=== PATIENT | male | born 1995 | race Caucasian/White ===

== ENCOUNTER 2017-09-06 12:45 | Emergency (ER) | payer MEDICAID ==
[~2017-09-06] VITALS: Ht 190.5 cm; Wt 113.4 kg
[~2017-09-06 12:45] MED LIST: ACYCLOVIR400 MG PO; FLEXERIL10 MG PO; KEFLEX 250MG.250 MG PO; KEFLEX 500MG.500 MG PO; MEDROL 4MG. DOSE4 MG PO; NAPROXEN SODIU220 MG PO; PHENERGAN 12.12.5 M1 PO; PHENERGAN 25MG.25 M1 PO; TYLENOL W/CODEI1 TA4 PO; VIT B-6100 MG PO
--- NOTE | 2017-09-06 13:32 | RADIOLOGY REPORT PS360 ---
HAND-RT 3 VIEWS COMPARISON: None HISTORY: Right hand pain after recent injury TECHNIQUE: AP lateral and oblique views FINDINGS: The carpal bones metacarpals and phalanges appear intact with no evidence of recent or old fracture. There is mild diffuse soft tissue swelling of the hand with no foreign bodies. IMPRESSION: Mild soft tissue swelling, no fracture seen
[2017-09-06 13:41] VITALS: BP 166/86
--- NOTE | 2017-09-06 13:41 | Urgent Treatment Center Report ---
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 Location if Accident: Onset of symptoms date/time:/ or onset unknown for:MEDICAL HX UNKNOWN Have you (or family members/close friends) recently traveled outside the [place]? N If Yes, where/when: Have you had exposure to infectious disease within the past month? TB? Other? Specify: Patient state that he was doing his martial arts when he accidently hurt his right middle finger and hand States that he noticed that it was swollen State that he gave it a coulple of days and it did not improve so he came in to get it checked ALLERGIES Coded Allergies: No Known Allergies (09/06/17) History Medical History General Angina: No AL: No Hypertension? No Hyperlipidemia? No CHF? No COPD? No Asthma? No CVA? No Seizures? No Diabetes? No GB Disease: No MRSA? No TB? No Cancer? No Immunization HX DT/Tetanus 5-10 YRS Surgical Hx Previous Surgery?Y EYE YUNIOR. Social History Smoking Hx Smoker: Never Smoker Tobacco: No Alcohol Alcohol: No Review of Systems All Other Systems Reviewed and Negative Physical Exam Vital Signs Vital Signs Date Time Temp Pulse Resp B/P Pulse O2 O2 Flow FiO2 Ox Delivery Rate 09/06 1300 97.1 62 20 166/86 98 General Appearance normal appearance, WD/WN, no apparent distress Respiratory Status Yes: trachea midline, chest symmetrical, non tender chest. No: respiratory distress. Cardiovascular normal exam, regular rate/rhythm, no peripheral edema Extremities swelling, Pain swelling and bruising noted to right hand and middle finger, good cap refill, good pulses Neurologic alert, normal exam, oriented x 3 Medical Decision Making LABS/Meds/Orders Pt receiving controlled substance in ED? No Departure Departure Time of Disposition 1339 Disposition DC Home or Self Care(routine) Clinical Impression Primary Impression: Hand sprain Qualifiers: Encounter type: initial encounter Laterality: right Qualified Code: S63.91XA - Sprain of unspecified part of right wrist and hand, initial encounter Condition STABLE Referrals GOVIND FAUST, DILLON CANTU if pain and swelling persists Patient Instructions How To Perform RICE (Rest, Ice, Compress, Elevate) Additional Instructions Over the counter Motrin or Tylenol as needed for pain use acewrap until swelling gone REturn if needed Discharge Counseling Counseled pt/family regarding diagnosis, home care, follow up needs at [phone]
--- OUTSIDE RECORDS SUMMARY | 2017-09-09 11:55 | External Medical Summary Rpt | CCD ---
Author Author , TUAN Organization TUAN Address Unknown Phone [email or web address] Care Team Providers Care Unified Communications Architect Name Role Phone KENDELL POPEYE, KENDELL Unavailable Unavailable [facility] Unavailable Unavailable INC, [facility] Un[facility] Unavailable [facility], [facility] PAOLA DWI, PAOLA DWI Unavailable Unavailable PAOLA LORI, PAOLA Unavailable Unavailable LORI PAOLA, LORI E, Unavailable Unavailable PAOLA, LORI E [facility] Unavailable Unavailable SERVICES, [facility] SOKAN BAB, SOKAN BAB Unavailable Unavailable [facility] # Unavailable Unavailable [id number], [facility] # [id number] [facility] Unavailable Unavailable DEPT [facility], [facility] DE[facility] Unavailable Unavailable [facility] WEHRMAN III ALISHA, Unavailable Unavailable WEHRMAN III ALISHA Purpose Continuity of Care Document - 08-04-2008 through 2016 Problems Code Diagnosis DOS Provider Status Z202 CONTACT 09-21-2016 [facility] WITH [facility] EXPOSURE [facility] DEPT INFECT SANTOS SEXUAL MODE TRANSMS 25427 OTHER SPEC 12-31-2010 [facility] WITHOUT INC MENTION HEMORRHAGE 48627 UNS 12-31-2010 [facility] GASTRITIS&G LORI ASTRODUODIT IS W/O MENTION HEMORR 91597 ABDOMINAL 12-30-2010 [facility], MEDICAL UNSPECIFIED IMAGING ASS SITE 71836 ABDOMINAL 12-30-2010 [facility] RIGHT [facility] UPPER INC QUADRANT 77609 ABDOMINAL 12-29-2010 [facility] PAIN, EMERGENCY GENERALIZED SERVICES 5589 OTH&UNSPEC 09-22-2010 [facility] NONINFECTIO EMERGENCY US SERVICES GASTROENTER ITIS&COLITI S 87064 PAIN IN 08-14-2010 [facility] IM[facility]ING ASS FOOT 47315 UNSPECIFIED 08-14-2010 [facility] SITE OF EMERGENCY ANKLE SERVICES SPRAIN AND STRAIN E9270 OVEREXERTIO 08-14-2010 [facility] N FROM EMERGENCY SUDDEN SERVICES STRENUOUS MOVEMENT 4660 ACUTE 04-10-2010 [facility] INC 4659 ACUTE URIS 04-07-2010 [facility] OF [facility] UNSPECIFIED INC SITE 7862 COUGH 04-07-2010 [facility] Medications Na ND Rx Da Fi Fi Am Da Di Ph RX Ph St me C No te ll ll ou ys ag ar # ys at rm s nt no ma ic us Or Da si cy ia de te s n re d ME 50 08 09 4. 1 00 WA Ac TR 11 -2 -2 00 00 L- ti ON 10 2- 2- 0 07 MA ve ID 33 20 20 48 RT AZ 40 17 17 90 OL 2 82 PH E AR 50 MA 0 CY MG #2 TA 06 BL 0 ET OR 68 02 02 0 25 6 WA 71 LE Ac OM 38 -0 -0 .0 L- 05 WI ti ET 20 4- 4- 00 MA 47 S ve SCALES 04 20 20 RT 5 JR ZI 10 11 11 NE 1 PH DW AR IG 25 MA HT CY E MG # TA 10 BL 05 ET 91 Results Labs Lab Lab Date Result Refere Interp Status Commen Order Detail nces retati t Range on Treponema pallidum IgG Ab [Presence] in Serum by Immunoassay (07-18-2017 09:30) Trepone NON-SEB complet ma 017 CTIVE ed pallidu 09:30 m IgG Ab [Presen ce] in Serum by Immunoa ssay CHLAMYDIA AND GONORRHEA TESTING (07-18-2017 09:30) Chlamyd NEGATIV complet ia 017 E ed trachom 09:30 atis rRNA [Presen ce] in Unspeci fied specime n by Probe & target amplifi cation method Neisser NEGATIV complet ia 017 E ed gonorrh 09:30 oeae rRNA [Presen ce] in Unspeci fied specime n by Probe & target amplifi cation method Treponema pallidum IgG Ab [Presence] in Serum by Immunoassay (07-18-2017 09:30) COLLECT AH complet OR 017 ed 09:30 ETHNICI WHITE/N complet TY 017 ON-HISP ed 09:30 PURPOSE DIAGNOS complet OF 017 TIC ed EXAM 09:30 SPECIME BLOOD complet N 017 ed SOURCE 09:30 CHART 08-22-2 NA complet NUMBER 017 ed 09:30 Trepone Pending complet ma 017 ed pallidu 09:30 m IgG Ab [Presen ce] in Serum by Immunoa ssay CHLAMYDIA AND GONORRHEA TESTING (07-18-2017 09:30) COLLECT AH complet OR 017 ed 09:30 ETHNICI WHITE, complet TY 017 NON-HIS ed 09:30 PANIC KIT 10-2 complet EXPIRAT 017 017 ed ION 09:30 DATE SYMPTOM NO complet S 017 ed 09:30 REASON VOLUNTE complet FOR 017 ER/MEDI ed REQUEST 09:30 LARISSA PROBLEM SPECIME MALE complet N 017 URETHRA ed SOURCE 09:30 L PREGNAN NO complet T 017 ed 09:30 CHART N/A complet NUMBER 017 ed 09:30 Chlamyd Pending complet ia 017 ed trachom 09:30 atis rRNA [Presen ce] in Unspeci fied specime n by Probe & target amplifi cation method Neisser Pending complet ia 017 ed gonorrh 09:30 oeae rRNA [Presen ce] in Unspeci fied specime n by Probe & target amplifi cation method CHLAMYDIA AND GONORRHEA TESTING (09-21-2016 14:00) Chlamyd NEGATIV complet ia 016 E ed trachom 14:00 atis rRNA [Presen ce] in Unspeci fied specime n by Probe & target amplifi cation method Neisser NEGATIV complet ia 016 E ed gonorrh 14:00 oeae rRNA [Presen ce] in Unspeci fied specime n by Probe & target amplifi cation method Treponema pallidum IgG Ab [Presence] in Serum by Immunoassay (09-21-2016 14:00) Trepone NON-SEB complet ma 016 CTIVE ed pallidu 14:00 m IgG Ab [Presen ce] in Serum by Immunoa ssay CHLAMYDIA AND GONORRHEA TESTING (09-21-2016 14:00) COLLECT AH/GENP complet OR 016 ROBE ed 14:00 ETHNICI 09-21-2 WHITE, complet TY 016 NON-HIS ed 14:00 PANIC KIT complet EXPIRAT 016 016 ed ION 14:00 DATE SYMPTOM NO complet S 016 ed 14:00 REASON VOLUNTE complet FOR 016 ER/MEDI ed REQUEST 14:00 LARISSA PROBLEM SPECIME URINE complet N 016 ed SOURCE 14:00 PREGNAN NO complet T 016 ed 14:00 CHART N/A complet NUMBER 016 ed 14:00 Chlamyd Pending complet ia 016 ed trachom 14:00 atis rRNA [Presen ce] in Unspeci fied specime n by Probe & target amplifi cation method Neisser Pending complet ia 016 ed gonorrh 14:00 oeae rRNA [Presen ce] in Unspeci fied specime n by Probe & target amplifi cation method Treponema pallidum IgG Ab [Presence] in Serum by Immunoassay (09-21-2016 14:00) COLLECT AH/RTT complet OR 016 ed 14:00 ETHNICI WHITE/N complet TY 016 ON-HISP ed 14:00 ANIC PURPOSE DIAGNOS complet OF 016 TIC ed EXAM 14:00 SPECIME BLOOD complet N 016 ed SOURCE 14:00 CHART N/A complet NUMBER 016 ed 14:00 Trepone Pending complet ma 016 ed pallidu 14:00 m IgG Ab [Presen ce] in Serum by Immunoa ssay Procedures Procedure DOS Code Location Performer Comment IADNA 16677 [facility] DEPT TH DEPT TRACHOMAT SANTOS SANTOS IS AMPLIFIED PROBE TQ SYPHILIS 58216 [facility] TEST [facility] NON-TREPO [facility] DEPT [facility] DEPT NEMAL SANTOS SANTOS ANTIBODY QUAL IADNA 13231 [facility] NEISSERIA [facility] DEPT TH DEPT GONORRHOE SANTOS SANTOS AE AMPLIFIED PROBE TQ ANTIBODY 43983 [facility] HELICOBAC [address] [place] [address] [facility] ABDOMINAL 1 [facility] REAL INC [place] TIME W/[place] [address] [facility] LIPASE 1 [facility] H[facility]P [facility] INC INC BLOOD 96103 [facility] SANTAMARIA COUNT 1 [facility] COMPLETE INC INC AUTO&[place] [address] [facility]ANT[facility] AMYLASE 1 MEM HOSP [facility] INC INC COMPREHEN 99649 [facility] S[facility] SIVE 1 [facility] METABOLIC INC INC PANEL RADEX 86560 [facility] ANKLE 0 [facility] COMPLETE INC INC MINIMUM 3 VIEWS RADIOLOGI 29118 [facility] SANTAMARIA C EXAM 0 [facility] HOSP CHEST 2 INC INC VIEWS FRONTAL&L ATERAL Encounters Encounter Start End Date Code Location Performer Type Date OFFICE 75465 [facility] 6 [facility] T [facility] 10 HLTH DEPT HLTH [facility]PT MINUT[facility] ROSALIO - 1 1 [facility] OFF[facility] [address] [facility] 1 1 LORI T VISIT 15 MINUTES HOSPITAL [facility] - 1 1 [facility] 27275 [facility] 1 1 [facility] T VISIT MODERATE SEVERITY EMERGENCY 91249 JH RDZ DEPT 1 1 EMERGENCY [facility] VISIT SERVICES HIGH SEVERITY& THREAT [facility] ROSALIO - 1 1 [facility] - 0 0 [facility] T EMERGENCY 49890 [facility] 0 0 [facility] T VISIT LIMITED/M INOR PROB EMERGENCY 12847 JH GIBSON 0 0 EMERGENCY DEPARTMEN SERVICES T VISIT HIGH/URGE NT SEVERITY EMERGENCY 16639 JH SCHWARTZ 0 0 EMERGENCY III ALISHA DEPARTMEN SERVICES T VISIT MODERATE SEVERITY HOSPITAL [facility] - 0 0 [facility]PATIEN [facility] T HOSPITAL ROSALIO - 0 0 MEM H[facility] OUTPATIEN INC T EMERGENCY 92967 [facility] 0 0 [facility] DEPARTMEN INC T VISIT LOW/MODER SEVERITY EMERGENCY 92831 [facility] 0 0 [facility] DEPARTMEN INC T VISIT LOW/MODER SEVERITY HOSPITAL [facility] - 0 0 [facility] T OFFICE 51901 TIANA RODRIGUEZ 8 8 LORIJerrell SANDOVAL E T VISIT EMD 15 MINUTES
--- OUTSIDE RECORDS SUMMARY | 2017-09-09 11:55 | External Medical Summary Rpt | CCD ---
Author Author , TUAN Organization TUAN Address Unknown Phone .[facility] Care Team Providers Care Unemployment Inspector Name Role Phone KENDELL POPEYE, KENDELL Unavailable Unavailable [facility] Unavailable Unavailable INC, [facility] Unavailable Unavailable IM[facility]ING [facility], [facility] PAOLA DWI, PAOLA DWI Unavailable Unavailable PAOLA LORI, PAOLA Unavailable Unavailable LORI PAOLA, LORI E, Unavailable Unavailable PAOLA, LORI E [facility] Unavailable Unavailable SERVICES, [facility] SOKAN BAB, SOKAN BAB Unavailable Unavailable [facility] # Unavailable Unavailable [id number], [facility] # [id number] [facility] Unavailable Unavailable DEPT SANTOS, [facility] DEPT SANTOS [facility] Unavailable Unavailable DEPT [facility] WEHRMAN III ALISHA, Unavailable Unavailable WEHRMAN III ALISHA Purpose Continuity of Care Document - 08-04-2008 through 2016 Problems Code Diagnosis DOS Provider Status Z202 CONTACT 09-21-2016 [facility] EXPOSURE [facility] DEPT INFECT SANTOS SEXUAL MODE TRANSMS 44372 OTHER SPEC 12-31-2010 [facility] WITHOUT INC MENTION HEMORRHAGE 68712 UNS 12-31-2010 PA[facility] GASTRITIS&G LORI ASTRODUODIT IS W/O MENTION HEMORR 91925 ABDOMINAL 12-30-2010 [facility], MEDICAL UNSPECIFIED IMAGING ASS SITE 76354 ABDOMINAL 12-30-2010 [facility] PA[facility] RIGHT [facility] UPPER INC QUADRANT 80978 ABDOMINAL 12-29-2010 [facility] PAIN, EMERGENCY GENERALIZED SERVICES 5589 OTH&UNSPEC 09-22-2010 [facility] NONINFECTIO EMERGENCY US SERVICES GASTROENTER ITIS&COLITI S 53094 PAIN IN 08-14-2010 [facility] ANKLE AND IMAGING ASS FOOT 94679 UNSPECIFIED 08-14-2010 [facility] SITE OF EMERGENCY ANKLE SERVICES SPRAIN AND STRAIN E9270 OVEREXERTIO 08-14-2010 JH N FROM EMERGENCY SUDDEN SERVICES STRENUOUS MOVEMENT 4660 ACUTE 04-10-2010 [facility] INC 4659 ACUTE URIS 04-07-2010 [facility] OF [facility] UNSPECIFIED INC SITE 7862 COUGH 04-07-2010 [facility] Medications Na ND Rx [...] MG #2 TA 06 BL 0 ET HI 68 02 02 0 25 6 WA [...] Procedure DOS Code Location Performer Comment IADNA 94365 [facility] DEPT TH DEPT TRACHOMAT SANTOS SANTOS IS AMPLIFIED PROBE TQ SYPHILIS 32365 [facility] NON-TREPO [facility] DEPT [facility] DEPT NEMAL SANTOS SANTOS ANTIBODY QUAL IADNA 13368 [facility] DEPT TH DEPT GONORRHOE SANTOS SANTOS AE AMPLIFIED PROBE TQ ANTIBODY 00578 [facility] SANTAMARIA HELICOBAC [address] [place] [address] [facility] S[facility]AM[facility] ABDOMINAL 1 [facility] REAL INC INC TIME W/[place] [address] [facility] SANTAM[facility]IA LIPASE 1 [facility] H[facility] INC INC BLOOD 31403 [facility] SANTAMARIA COUNT 1 [facility] COMPLETE INC INC AUTO&[place] [address] [facility] SANTAMARIA AMYLASE 1 [facility] H[facility] INC INC COMPREHEN 44643 [facility] SANT[facility] SIVE 1 [facility] METABOLIC INC INC PANEL RADEX 12001 [facility] SANTAMARIA ANKLE 0 [facility] COMPLETE INC INC MINIMUM 3 VIEWS RADIOLOGI 55218 [facility] SANTAMARIA C EXAM 0 [facility] HOSP CHEST 2 INC INC VIEWS FRONTAL&L ATERAL Encounters Encounter Start End Date Code Location Performer Type Date OFFICE 02499 [facility] T [facility] 10 HLTH DEPT HLTH DEPT MINUT[facility] ROSALIO - 1 1 [facility] OFF[facility] 69996 [facility] 1 1 LORI T VISIT 15 MINUTES HOSPITAL [facility] - 1 1 [facility] 60612 [facility] 1 1 [facility] T VISIT MODERATE SEVERITY EMERGENCY 46228 JH RDZ DEPT 1 1 EMERGENCY [facility] VISIT SERVICES HIGH SEVERITY& THREAT [facility] ROSALIO - 1 1 [facility] - 0 0 [facility] T EMERGENCY 10418 [facility] 0 0 [facility] T VISIT LIMITED/M INOR PROB EMERGENCY 69445 JH GIBSON 0 0 EMERGENCY DEPARTMEN SERVICES T VISIT HIGH/URGE NT SEVERITY EMERGENCY 19565 JH SCHWARTZ 0 0 EMERGENCY III ALISHA DEPARTMEN SERVICES T VISIT MODERATE SEVERITY HOSPITAL [facility] - 0 0 [facility] OUTPATIEN [facility] T HOSPITAL ROSALIO - 0 0 MEM [facility] OUTPATIEN INC T EMERGENCY 23329 [facility] 0 0 [facility] DEPARTMEN INC T VISIT LOW/MODER SEVERITY EMERGENCY 97973 [facility] 0 0 [facility] DEPARTMEN INC T VISIT LOW/MODER SEVERITY HOSPITAL [facility] - 0 0 [facility] OUT[facility]IEN [facility] T OFFICE 45326 TIANA RODRIGUEZ 8 8 LORIJerrell SANDOVAL E T VISIT EMD 15 MINUTES
--- OUTSIDE RECORDS SUMMARY | 2017-09-09 11:56 | External Medical Summary Rpt ---
Author Author TUAN Amato, TUAN Production Organization [employer] Address Unknown Phone Unavailable Results Treponema pallidum IgG Ab [Presence] in Serum by Immunoassay Observa Value Referen Units Interpr Notes Date tion ce etation Range COLLECT AH No No No No Jul 18 OR informa informa informa informa 2017 tion in tion in tion in tion in 9:30 AM source source source source data data data data ETHNICI WHITE/N No No No No Jul 18 TY ON-HISP informa informa informa informa 2017 tion in tion in tion in tion in 9:30 AM source source source source data data data data PURPOSE DIAGNOS No No No No Jul 18 OF TIC informa informa informa informa 2017 EXAM tion in tion in tion in tion in 9:30 AM source source source source data data data data SPECIME BLOOD No No No No Jul 18 N informa informa informa informa 2017 SOURCE tion in tion in tion in tion in 9:30 AM source source source source data data data data CHART NA No No No No Jul 18 NUMBER informa informa informa informa 2017 tion in tion in tion in tion in 9:30 AM source source source source data data data data Trepone NON-SEB No No No METHOD Jul [address] informa informa informa OF 2017 pallidu tion in tion in tion in ANALYSI 9:30 AM m IgG source source source S: Ab data data data EIANORM [Presen AL ce] in RANGE: Serum NON-SEB by CTIVE\. Immunoa br\This ssay report contain s patient informa tion that must be protect ed in accorda nce with the Health Insuran ce Portabi lity and Account ability Act. CHLAMYDIA AND GONORRHEA TESTING Observa Value Referen Units Interpr Notes Date tion ce etation Range COLLECT AH No No No No Jul 18 OR informa informa informa informa 2017 tion in tion in tion in tion in 9:30 AM source source source source data data data data ETHNICI WHITE, No No No No Jul 18 TY NON-HIS informa informa informa informa 2017 PANIC tion in tion in tion in tion in 9:30 AM source source source source data data data data KIT 10-31-2 No No No No Jul 18 EXPIRAT 017 informa informa informa informa 2017 ION tion in tion in tion in tion in 9:30 AM DATE source source source source data data data data SYMPTOM NO No No No No Jul 18 S informa informa informa informa 2017 tion in tion in tion in tion in 9:30 AM source source source source data data data data REASON VOLUNTE No No No No Jul 18 FOR ER/MEDI informa informa informa informa 2017 REQUEST LARISSA tion in tion in tion in tion in 9:30 AM PROBLEM source source source source data data data data SPECIME MALE No No No No Jul 18 N URETHRA informa informa informa informa 2017 SOURCE L tion in tion in tion in tion in 9:30 AM source source source source data data data data PREGNAN NO No No No No Jul 18 T informa informa informa informa 2017 tion in tion in tion in tion in 9:30 AM source source source source data data data data CHART N/A No No No No Jul 18 NUMBER informa informa informa informa 2017 tion in tion in tion in tion in 9:30 AM source source source source data data data data Chlamyd NEGATIV No No No NEGATIV Jul 18 ia E informa informa informa E 2017 trachom tion in tion in tion in RESULT= 9:30 AM atis source source source WITHIN rRNA data data data NORMAL [Presen ce] in LIMITSP Unspeci OSITIVE fied specime RESULT= n by Probe & ABNORMA target LEQUIVO LARISSA amplifi RESULT= cation method INDETER MINATEU NSATISF ACTORY RESULT= INVALID Neisser NEGATIV No No No NEGATIV Jul 18 ia E informa informa informa E 2017 gonorrh tion in tion in tion in RESULT= 9:30 AM oeae source source source WITHIN rRNA data data data NORMAL [Presen ce] in LIMITSP Unspeci OSITIVE fied specime RESULT= n by Probe & ABNORMA target LEQUIVO LARISSA amplifi RESULT= cation method INDETER MINATEU NSATISF ACTORY RESULT= INVALID THE APTIMA COMBO 2 ASSAY IS NOT INTENDE D FOR THE EVALUAT ION OF SUSPECT EDSEXUA L ABUSE OR FOR OTHER MEDICO- LEGAL INDICAT IONS. FOR THOSE PATIENT S FORWHOM A FALSE POSITIV E RESULT MAY HAVE ADVERSE PSYCHO- SOCIAL IMPACT, [facility].\.br \This report contain s patient informa tion that must be protect ed in accorda nce with the Health Insuran ce Portabi lity and Account ability Act. Treponema pallidum IgG Ab [Presence] in Serum by Immunoassay Observa Value Referen Units Interpr Notes Date tion ce etation Range COLLECT AH No No No No Jul 18 OR informa informa informa informa 2017 tion in tion in tion in tion in 9:30 AM source source source source data data data data ETHNICI WHITE/N No No No No Jul 18 TY ON-HISP informa informa informa informa 2017 tion in tion in tion in tion in 9:30 AM source source source source data data data data PURPOSE DIAGNOS No No No No Jul 18 OF TIC informa informa informa informa 2017 EXAM tion in tion in tion in tion in 9:30 AM source source source source data data data data SPECIME BLOOD No No No No Jul 18 N informa informa informa informa 2017 SOURCE tion in tion in tion in tion in 9:30 AM source source source source data data data data CHART NA No No No No Jul 18 NUMBER informa informa informa informa 2017 tion in tion in tion in tion in 9:30 AM source source source source data data data data Trepone Pending No No No \.br\Jul 18 ma informa informa informa is 2017 pallidu tion in tion in tion in report 9:30 AM m IgG source source source contain Ab data data data s [Presen patient ce] in Serum informa by tion Immunoa that ssay must be protect ed in accorda nce with the Health Insuran ce Portabi lity and Account ability Act. CHLAMYDIA AND GONORRHEA TESTING Observa Value Referen Units Interpr Notes Date tion ce etation Range COLLECT AH No No No No Jul 18 OR informa informa informa informa 2017 tion in tion in tion in tion in 9:30 AM source source source source data data data data ETHNICI WHITE, No No No No Jul 18 TY NON-HIS informa informa informa informa 2017 PANIC tion in tion in tion in tion in 9:30 AM source source source source data data data data KIT 10-31-2 No No No No Jul 18 EXPIRAT 017 informa informa informa informa 2017 ION tion in tion in tion in tion in 9:30 AM DATE source source source source data data data data SYMPTOM NO No No No No Jul 18 S informa informa informa informa 2017 tion in tion in tion in tion in 9:30 AM source source source source data data data data REASON VOLUNTE No No No No Jul 18 FOR ER/MEDI informa informa informa informa 2017 REQUEST LARISSA tion in tion in tion in tion in 9:30 AM PROBLEM source source source source data data data data SPECIME MALE No No No No Jul 18 N URETHRA informa informa informa informa 2017 SOURCE L tion in tion in tion in tion in 9:30 AM source source source source data data data data PREGNAN NO No No No No Jul 18 T informa informa informa informa 2017 tion in tion in tion in tion in 9:30 AM source source source source data data data data CHART N/A No No No No Jul 18 NUMBER informa informa informa informa 2017 tion in tion in tion in tion in 9:30 AM source source source source data data data data Chlamyd Pending No No No No Jul 18 ia informa informa informa informa 2017 trachom tion in tion in tion in tion in 9:30 AM atis source source source source rRNA data data data data [Presen ce] in Unspeci fied specime n by Probe & target amplifi cation method Neisser Pending No No No \.br\Th Jul 18 ia informa informa informa is 2017 gonorrh tion in tion in tion in report 9:30 AM oeae source source source contain rRNA data data data s [Presen patient ce] in Unspeci informa fied tion specime that n by must be Probe & target protect ed in amplifi accorda cation nce method with the Health Insuran ce Portabi lity and Account ability Act. CHLAMYDIA AND GONORRHEA TESTING Observa Value Referen Units Interpr Notes Date tion ce etation Range COLLECT AH/GENP No No No No Sep 21 OR ROBE informa informa informa informa 2016 tion in tion in tion in tion in 2:00 PM source source source source data data data data ETHNICI WHITE, No No No No Sep 21 TY NON-HIS informa informa informa informa 2016 PANIC tion in tion in tion in tion in 2:00 PM source source source source data data data data KIT 12-31-2 No No No No Sep 21 EXPIRAT 016 informa informa informa informa 2016 ION tion in tion in tion in tion in 2:00 PM DATE source source source source data data data data SYMPTOM NO No No No No Sep 21 S informa informa informa informa 2016 tion in tion in tion in tion in 2:00 PM source source source source data data data data REASON VOLUNTE No No No No Sep 21 FOR ER/MEDI informa informa informa informa 2016 REQUEST LARISSA tion in tion in tion in tion in 2:00 PM PROBLEM source source source source data data data data SPECIME URINE No No No No Sep 21 N informa informa informa informa 2016 SOURCE tion in tion in tion in tion in 2:00 PM source source source source data data data data PREGNAN NO No No No No Sep 21 T informa informa informa informa 2016 tion in tion in tion in tion in 2:00 PM source source source source data data data data CHART N/A No No No No Sep 21 NUMBER informa informa informa informa 2016 tion in tion in tion in tion in 2:00 PM source source source source data data data data Chlamyd NEGATIV No No No NEGATIV Sep 21 ia E informa informa informa E 2016 trachom tion in tion in tion in RESULT= 2:00 PM atis source source source WITHIN rRNA data data data NORMAL [Presen ce] in LIMITSP Unspeci OSITIVE fied specime RESULT= n by Probe & ABNORMA target LEQUIVO LARISSA amplifi RESULT= cation method INDETER MINATEU NSATISF ACTORY RESULT= INVALID Neisser NEGATIV No No No NEGATIV Sep 21 ia E informa informa informa E 2016 gonorrh tion in tion in tion in RESULT= 2:00 PM oeae source source source WITHIN rRNA data data data NORMAL [Presen ce] in LIMITSP Unspeci OSITIVE fied specime RESULT= n by Probe & ABNORMA target LEQUIVO LARISSA amplifi RESULT= cation method INDETER MINATEU NSATISF ACTORY RESULT= INVALID THE APTIMA COMBO 2 ASSAY IS NOT INTENDE D FOR THE EVALUAT ION OF SUSPECT EDSEXUA L ABUSE OR FOR OTHER MEDICO- LEGAL INDICAT IONS. FOR THOSE PATIENT S FORWHOM A FALSE POSITIV E RESULT MAY HAVE ADVERSE PSYCHO- SOCIAL IMPACT, [facility].\.br \This report contain s patient informa tion that must be protect ed in accorda nce with the Health Insuran ce Portabi lity and Account ability Act. Treponema pallidum IgG Ab [Presence] in Serum by Immunoassay Observa Value Referen Units Interpr Notes Date tion ce etation Range COLLECT AH/RTT No No No No Sep 21 OR informa informa informa informa 2016 tion in tion in tion in tion in 2:00 PM source source source source data data data data ETHNICI WHITE/N No No No No Sep 21 TY ON-HISP informa informa informa informa 2016 ANIC tion in tion in tion in tion in 2:00 PM source source source source data data data data PURPOSE DIAGNOS No No No No Sep 21 OF TIC informa informa informa informa 2016 EXAM tion in tion in tion in tion in 2:00 PM source source source source data data data data SPECIME BLOOD No No No No Sep 21 N informa informa informa informa 2016 SOURCE tion in tion in tion in tion in 2:00 PM source source source source data data data data CHART N/A No No No No Sep 21 NUMBER informa informa informa informa 2016 tion in tion in tion in tion in 2:00 PM source source source source data data data data Trepone NON-SEB No No No METHOD Sep [address] informa informa informa OF 2016 pallidu tion in tion in tion in ANALYSI 2:00 PM m IgG source source source S: Ab data data data EIANORM [Presen AL ce] in RANGE: Serum NON-SEB by CTIVE\. Immunoa br\This ssay report contain s patient informa tion that must be protect ed in accorda nce with the Health Insuran ce Portabi lity and Account ability Act. CHLAMYDIA AND GONORRHEA TESTING Observa Value Referen Units Interpr Notes Date tion ce etation Range COLLECT AH/GENP No No No No Sep 21 OR ROBE informa informa informa informa 2016 tion in tion in tion in tion in 2:00 PM source source source source data data data data ETHNICI WHITE, No No No No Sep 21 TY NON-HIS informa informa informa informa 2016 PANIC tion in tion in tion in tion in 2:00 PM source source source source data data data data KIT 12-31-2 No No No No Sep 21 EXPIRAT 016 informa informa informa informa 2016 ION tion in tion in tion in tion in 2:00 PM DATE source source source source data data data data SYMPTOM NO No No No No Sep 21 S informa informa informa informa 2016 tion in tion in tion in tion in 2:00 PM source source source source data data data data REASON VOLUNTE No No No No Sep 21 FOR ER/MEDI informa informa informa informa 2016 REQUEST LARISSA tion in tion in tion in tion in 2:00 PM PROBLEM source source source source data data data data SPECIME URINE No No No No Sep 21 N informa informa informa informa 2016 SOURCE tion in tion in tion in tion in 2:00 PM source source source source data data data data PREGNAN NO No No No No Sep 21 T informa informa informa informa 2016 tion in tion in tion in tion in 2:00 PM source source source source data data data data CHART N/A No No No No Sep 21 NUMBER informa informa informa informa 2016 tion in tion in tion in tion in 2:00 PM source source source source data data data data Chlamyd Pending No No No No Sep 21 ia informa informa informa informa 2016 trachom tion in tion in tion in tion in 2:00 PM atis source source source source rRNA data data data data [Presen ce] in Unspeci fied specime n by Probe & target amplifi cation method Neisser Pending No No No \.br\Sep 21 ia informa informa informa is 2016 gonorrh tion in tion in tion in report 2:00 PM oeae source source source contain rRNA data data data s [Presen patient ce] in Unspeci informa fied tion specime that n by must be Probe & target protect ed in amplifi accorda cation nce method with the Health Insuran ce Portabi lity and Account ability Act. Treponema pallidum IgG Ab [Presence] in Serum by Immunoassay Observa Value Referen Units Interpr Notes Date tion ce etation Range COLLECT AH/RTT No No No No Sep 21 OR informa informa informa informa 2016 tion in tion in tion in tion in 2:00 PM source source source source data data data data ETHNICI WHITE/N No No No No Sep 21 TY ON-HISP informa informa informa informa 2016 ANIC tion in tion in tion in tion in 2:00 PM source source source source data data data data PURPOSE DIAGNOS No No No No Sep 21 OF TIC informa informa informa informa 2016 EXAM tion in tion in tion in tion in 2:00 PM source source source source data data data data SPECIME BLOOD No No No No Sep 21 N informa informa informa informa 2016 SOURCE tion in tion in tion in tion in 2:00 PM source source source source data data data data CHART N/A No No No No Sep 21 NUMBER informa informa informa informa 2016 tion in tion in tion in tion in 2:00 PM source source source source data data data data Trepone Pending No No No \.brSep 21 ma informa informa informa is 2016 pallidu tion in tion in tion in report 2:00 PM m IgG source source source contain Ab data data data s [Presen patient ce] in Serum informa by tion Immunoa that ssay must be protect ed in accorda nce with the Health Insuran rigo [place]ison lity and Account ability Act.
--- OUTSIDE RECORDS SUMMARY | 2017-09-09 11:56 | External Medical Summary Rpt | CCD ---
Author Author , TUAN DICKERSON Address Unknown Phone [email or web address] Immunization Name Date Rout CVX Reac Dose Comm Prov Is Faci e tion ent ider Refu lity Give sed n Tdap 12-1 115 999 Hist H149 No H149 , 8-20 [facility] Adso 06 al rbed Info rmat ion - Sour ce Unsp ecif ied
--- OUTSIDE RECORDS SUMMARY | 2017-09-09 11:56 | External Medical Summary Rpt | CCD ---
Author Author , TUAN DICKERSON Address Unknown Phone [email or web address] Care Team Providers Care Wallpaper Inspector And Shipper Name Role Phone CRISTÓBAL MYRA, Unavailable Unavailable CRISTÓBAL MYRA KENDELL POPEYE, KENDELL Unavailable Unavailable [facility] Un[facility] Un[facility], [facility] Un[facility] Unavailable [facility], [facility] PAOLA DWI, PAOLA DWI Unavailable Unavailable PAOLA LORI, PAOLA Unavailable Unavailable LORI PAOLA, LORI E, Unavailable Unavailable PAOLA, LORI E [facility] Unavailable Unavailable SERVICES, [facility] CRYSTAL CAROL, CRYSTAL Unavailable Unavailable CAROL SOKAN BAB, SOKAN BAB Unavailable Unavailable [facility] # Unavailable Unavailable [id number], [facility] # [id number] [facility] Unavailable Unavailable DEPT [facility] Un[facility]available DEPT [facility] Purpose Continuity of Care Document - 08-04-2008 through 2016 Problems Code Diagnosis DOS Provider Status Z202 CONTACT 09-21-2016 [facility] EXPOSURE [facility] DEPT INFECT [facility] SEXUAL MODE TRANSMS 18005 OTHER SPEC 12-31-2010 [facility] WITHOUT INC MENTION HEMORRHAGE 02551 UNS 12-31-2010 [facility] GASTRITIS&G LORI ASTRODUODIT IS W/O MENTION HEMORR 60848 ABDOMINAL 12-30-2010 [facility] UNSPECIFIED IMAGING ASS SITE 08937 ABDOMINAL 12-30-2010 [facility] PAIN RIGHT [facility] UPPER INC QUADRANT 54054 ABDOMINAL 12-29-2010 [facility], EMERGENCY GENERALIZED SERVICES 5589 OTH&UNSPEC 09-22-2010 [facility]ECT[facility] US SERVICES GASTROENTER ITIS&COLITI S 18144 PAIN IN 08-14-2010 [place] JOINT, MEDICAL ANKLE AND IMAGING ASS FOOT 73705 UNSPECIFIED 08-14-2010 [facility] SITE OF EMERGENCY ANKLE SERVICES SPRAIN AND STRAIN E9270 OVEREXERTIO 08-14-2010 [facility] FROM EMERGENCY SUDDEN SERVICES STRENUOUS MOVEMENT 4660 ACUTE 04-10-2010 [facility] INC 4659 ACUTE URIS 04-07-2010 [facility] UNSPECIFIED INC SITE 7862 COUGH 04-07-2010 [facility] Medications Na ND Rx [...] MG #2 TA 06 BL 0 ET [place] 68 02 02 0 25 6 WA 71 LE Ac OM 38 -0 -0 .0 L- 05 WI ti ET 20 4- 4- 00 MA 47 S ve SCALES 04 20 20 RT 5 JR ZI 10 11 11 NE 1 PH DW AR IG 25 MA HT CY E MG # TA 10 BL 05 ET 91 Procedures Procedure DOS Code Location Performer Comment IADNA 22772 [facility]PT [facility] TRACHOMAT [facility] IS AMPLIFIED PROBE TQ SYPHILIS 21246 [facility] TEST 6 [facility] NEMAL [facility] ANTIBODY QUAL IADNA 47241 [facility] NEISSERIA 6 [facility] DEPT [facility] DEPT GONORRHOE [facility] AE AMPLIFIED PROBE TQ ANTIBODY 63942 [facility] HELICOBAC [address] [place] [place] [address] [place] CRISTÓBAL ABDOMINAL 1 MEDICAL MYRA REAL IMAGING TIME ASS W/IMAGE LIMITED BLOOD 51620 [facility] SANT[facility]IA COUNT 1 [facility] COMPLETE INC INC AUTO&[place] [address] [facility] SANTAM[facility]IA AMYLASE 1 [place] [address] [facility] SANTAM[facility]IA LIPASE 1 [facility] INC INC COMPREHEN 46702 [facility] S[facility] SIVE 1 [facility] METABOLIC INC INC PANEL RADEX 36869 [place] CRYSTAL ANKLE 0 MEDICAL CAROL COMPLETE IMAGING MINIMUM 3 ASS VIEWS RADIOLOGI 50812 [facility] SANTAMARIA C EXAM 0 [facility] CHEST 2 INC INC VIEWS FRONTAL&L ATERAL Encounters Encounter Start End Date Code Location Performer Type Date OFFICE 29315 [facility] OUTPATIEN 6 [facility] 10 HLTH DEPT HLTH DEPT MINUTES [facility] - 1 1 [facility] OUTPATIEN INC T OFFICE 27888 [facility] MONDRAGON OUTPATIEN 1 1 LORI T VISIT 15 MINUTES [facility]OSP[facility] - 1 1 [facility] OUTPATIEN INC T EMERGENCY 10953 [facility] DEPT 1 1 EMERGENCY [facility] VISIT SERVICES HIGH SEVERITY& THREAT FUNCJ EMERGENCY 86418 [facility] 1 1 [facility] DEPARTMEN INC T VISIT MODERATE SEVERITY [facility]OSPITAL [facility] - 1 1 [facility] OUTPATIEN INC [facility] - 0 0 [facility] OUTPATIEN INC T EMERGENCY 32681 [facility] 0 0 EMERGENCY DEPARTMEN SERVICES T VISIT HIGH/URGE NT SEVERITY EMERGENCY 28220 [facility] 0 0 [facility] DEPARTMEN INC T VISIT LIMITED/M INOR PROB HOSPITAL [facility] - 0 0 [facility] OUTPATIEN INC T EMERGENCY 19685 [facility] 0 0 [facility] DEPARTMEN INC T VISIT MODERATE SEVERITY EMERGENCY 46901 [facility] 0 0 [facility] DEPARTMEN INC T VISIT LOW/MODER SEVERITY [facility]OSPITAL [facility] - 0 0 [facility] OUTPATIEN INC HOSPITAL [facility] - 0 0 [facility] OUTPATIEN INC T EMERGENCY 91306 [facility] 0 0 [facility] DEPARTMEN INC T VISIT LOW/MODER SEVERITY OFFICE 66763 TIANA RODRIGUEZ 8 8 LORI LORI E T VISIT EMD 15 MINUTES
--- OUTSIDE RECORDS SUMMARY | 2017-09-09 11:56 | External Medical Summary Rpt | CCD ---
Author Author , TUAN DICKERSON Address Unknown Phone [email or web address] Immunization Name Date Rout CVX Reac Dose Comm Prov Is Faci e tion ent ider Refu lity Give sed n Tdap 12-1 115 999 Hist H149 No H149 , 8-20 [facility] Adso 06 al rbed Info rmat ion - Sour ce Unsp ecif ied
--- OUTSIDE RECORDS SUMMARY | 2017-09-09 11:56 | External Medical Summary Rpt | CCD ---
Author Author , TUAN DICKERSON Address Unknown Phone [email or web address] Care Team Providers Care Inspector Wire Products Name Role Phone CRISTÓBAL MYRA, Unavailable Unavailable CRISTÓBAL MYRA KENDELL POPEYE, KENDELL Unavailable Unavailable [facility] Un[facility] Un[facility], [facility] Un[facility] Un[facility], [facility] PAOLA DWI, PAOLA DWI Unavailable Unavailable PAOLA LORI, PAOLA Unavailable Unavailable LORI PAOLA, LORI E, Unavailable Unavailable PAOLA, LORI E [facility] Unavailable Unavailable SERVICES, [facility] CRYSTAL CAROL, CRYSTAL Unavailable Unavailable CAROL SOKAN BAB, SOKAN BAB Unavailable Unavailable [facility] # [facility]available Unavailable [id number], [facility] # [id number] [facility] Unavailable Unavailable DEPT [facility] Unavailable [facility]available [facility] Purpose Continuity of Care Document - 08-04-2008 through 2016 Problems Code Diagnosis DOS Provider Status Z202 CONTACT 09-21-2016 [facility] WITH [facility] EXPOSURE [facility] DEPT INFECT [facility] SEXUAL MODE TRANSMS 04092 OTHER SPEC 12-31-2010 [facility] WITHOUT INC MENTION HEMORRHAGE 07434 UNS 12-31-2010 [facility] GASTRITIS&G LORI ASTRODUODIT IS W/O MENTION HEMORR 33224 ABDOMINAL 12-30-2010 [facility]PEC[facility]IED IMAGING ASS SITE 61917 ABDOMINAL 12-30-2010 [facility] PA[facility] RIGHT [facility] UPPER INC QUADRANT 60829 ABDOMINAL 12-29-2010 [facility], EMERGENCY GENERALIZED SERVICES 5589 OTH&UNSPEC 09-22-2010 [facility] NONINFECTIO [facility]Y US SERVICES GASTROENTER ITIS&COLITI S 13703 PAIN IN 08-14-2010 [facility] JOINT, MEDICAL ANKLE AND IMAGING ASS FOOT 69349 UNSPECIFIED 08-14-2010 [facility] OF EMERGENCY ANKLE SERVICES SPRAIN AND STRAIN E9270 OVEREXERTIO 08-14-2010 [facility] FROM EMERGENCY SUDDEN SERVICES STRENUOUS MOVEMENT 4660 ACUTE 04-10-2010 [facility] INC 4659 ACUTE URIS 04-07-2010 [facility] OF [facility] UNSPECIFIED INC SITE 7862 COUGH 04-07-2010 [facility] Medications Na ND Rx [...] MG #2 TA 06 BL 0 ET NE 68 02 02 0 25 6 WA [...] Procedure DOS Code Location Performer Comment IADNA 85174 [facility] CHLAM[facility]DIA 6 [facility] DEPT TRACHOMAT [facility] IS AMPLIFIED PROBE TQ SYPHILIS 40402 [facility] TEST 6 [facility] NEMAL [facility] ANTIBODY QUAL IADNA 24751 [facility] NEISSERIA 6 [facility] DEPT GONORRHOE [facility] AE AMPLIFIED PROBE TQ ANTIBODY 55518 [facility] SALASON HELICOBAC [address] [place] [address] [facility] CRISTÓBAL ABDOMINAL 1 MEDICAL MYRA REAL IMAGING TIME ASS W/IMAGE LIMITED BLOOD 59036 [facility] S[facility]IA COUNT 1 [facility] COMPLETE INC INC AUTO&[place] [address] [facility] SANTAM[facility]IA AMYLASE 1 [place] [address] [facility] S[facility]AM[facility]IA LIPASE 1 [facility] INC INC COMPREHEN 11900 [facility] SIVE 1 [facility] METABOLIC INC INC PANEL RADEX 56939 [facility] CRYTSAL ANKLE 0 MEDICAL CAROL COMPLETE IMAGING MINIMUM 3 ASS VIEWS RADIOLOGI 38312 [facility] SANTAM[facility]IA C EXAM 0 [facility] CHEST 2 INC INC VIEWS FRONTAL&L ATERAL Encounters Encounter Start End Date Code Location Performer Type Date OFFICE 84141 [facility]A OUTPATIEN [facility] DE[facility]UTES [facility] OUTPATI[facility] INC T OFFICE 74317 PA[facility] MONDRAGON OUTPATIEN 1 1 LORI T VISIT 15 MINUTES [facility] - 1 1 [facility] OUTPATIEN INC T EMERGENCY 13120 [facility] RDZ DEPT 1 1 EMERGENCY [facility] VISIT SERVICES HIGH SEVERITY& THREAT FUNCJ EMERGENCY 30892 [facility] 1 1 [facility] DEPARTMEN INC T VISIT MODERATE SEVERITY [facility] - 1 1 [facility] OUTPATI[facility] INC [facility] - 0 0 [facility] OUTPATIEN INC T EMERGENCY 63903 [facility] GIBSON 0 0 EMERGENCY DEPARTMEN SERVICES T VISIT HIGH/URGE NT SEVERITY EMERGENCY 15432 [facility] 0 0 [facility] DEPARTMEN INC T VISIT LIMITED/M INOR PROB [facility]OSPITAL [facility] - 0 0 [facility] OUTPATIEN INC T EMERGENCY 48382 [facility] 0 0 [facility] DEPARTMEN INC T VISIT MODERATE SEVERITY EMERGENCY 44715 [facility] 0 0 [facility] DEPARTMEN INC T VISIT LOW/MODER SEVERITY [facility]OSPITAL [facility] - 0 0 [facility] OUTPATIEN INC [facility] - 0 0 [facility] OUTPATIEN INC T EMERGENCY 77941 [facility] 0 0 [facility] DEPARTMEN INC T VISIT LOW/MODER SEVERITY OFFICE 05524 TIANA RODRIGUEZ 8 8 LORI LORI E T VISIT EMD 15 MINUTES
--- OUTSIDE RECORDS SUMMARY | 2017-09-09 11:56 | External Medical Summary Rpt ---
[...] MAY HAVE ADVERSE PSYCHO- SOCIAL IMPACT, [facility].\.br \This report contain s [...] MAY HAVE ADVERSE PSYCHO- SOCIAL IMPACT, [facility].br \This report contain s [...]
== END 2017-09-06 13:42 | disposition home or self-care (01) ==
LOC: UTC 12:45
DX: S63.91XA Sprain of unspecified part of right wrist and hand, initial encounter (principal); X50.3XXA Overexertion from repetitive movements, initial encounter; Y93.75 Activity, martial arts; Y92.009 Unspecified place in unspecified non-institutional (private) residence as the place of occurrence of the external cause